=== PATIENT | male | born 1995 | race Caucasian/White ===

== ENCOUNTER → 2017-10-17 | Outpatient (CLI) | payer OTHER ==
--- NOTE | 2017-10-17 11:44 | DIAGNOSTIC IMAGING REPORT ---
(TESTICULAR) SCROTUM-CONT HISTORY: Testicular mass RIGHT TESTICULAR MASS COMPARISON: None. FINDINGS: Right testis: Maximum dimension 4.7 cm. Normal vascular flow. Uniform internal echogenicity. Mild prominence of the right epididymis compared to the left. Left testis: Maximum dimension 4.7 cm. Normal vascular flow. Normal epididymis IMPRESSION: 1. Normal testicular ultrasound. 2. No evidence for testicular mass or cyst. 3. Mild prominence of the right epididymis compared to the left possibly secondary to an anatomic variation versus a low-grade epididymal inflammatory change The above report was generated using voice recognition software. It may contain grammatical, syntax or spelling errors. Electronically signed by: Jonathan Saini M.D. 10/17/2017 11:42 AM Dictated Date/Time: 10/17/2017 11:40 AM
== END | disposition home or self-care (01) ==
LOC: C.ULTR 11:06
PROVIDERS: ATTEND Family Medicine
DX: N50.9 Disorder of male genital organs, unspecified (principal)